=== PATIENT | female | born 1955 ===

== ENCOUNTER 2021-07-24 20:54 | Emergency (ER) | payer OTHER ==
--- NOTE | 2021-07-25 01:29 | ER ---
Nurse's Notes [facility] Name: Maria Guadalupe Moreno Age: 65 yrs Sex: Female : 1955 Arrival Date: 07/24/2021 Time: 20:56 Bed 28 Private MD: Diagnosis: Left Distal Fibular Fracture Presentation: 07/24 21:17 Chief complaint: Patient states: the patient states she missed the last step on her st1 sons porch and fell landing on her left ankle. Coronavirus screen: Vaccine status: Patient reports being unvaccinated. Ebola Screen: No symptoms or risks identified at this time. Initial Sepsis Screen: Does the patient meet any 2 criteria? No. Patient's initial sepsis screen is negative. Does the patient have a suspected source of infection? No. Patient's initial sepsis screen is negative. Risk Assessment: Do you want to hurt yourself or someone else? Patient reports no desire to harm self or others. Onset of symptoms was July 24, 2021. 21:17 Method Of Arrival: Wheelchair st1 21:17 Acuity: STEVE 4 st1 Triage Assessment: 21:18 General: Appears in no apparent distress. uncomfortable, obese, well groomed, Behavior st1 is calm, cooperative. Pain: Complains of pain in Left ankle Pain radiates to Radiated up left leg Pain at worst was 8 out of 10 on a pain scale. level that patient reports is acceptable is 2 out of 10 on a pain scale. Quality of pain is described as sharp. Musculoskeletal: Reports weakness in left ankle pain in Left ankle. Historical: - Allergies: 21:18 No Known Allergies; st1 - PMHx: 21:18 Fibromyalgia; Depressive disorder; Arthritis; st1 - Immunization history:: Adult Immunizations not immunized. - Social history:: Smoking status: Patient denies any tobacco usage or history of. Patient/guardian denies using alcohol, street drugs, tobacco products. Screenin:22 Abuse screen: Denies threats or abuse. Nutritional screening: No deficits noted. st1 Tuberculosis screening: No symptoms or risk factors identified. Fall Risk Fall in past 12 months (25 points). No secondary diagnosis (0 pts). No IV (0 pts). Ambulatory Aid- Crutches/Cane/Walker (15 pts). Gait- Normal/Bed Rest/Wheelchair (0 pts) Mental Status- Oriented to own ability (0 pts). Total Sung Fall Scale indicates Low Risk Score (25-44 pts). Assessment: 23:53 Reassessment: All rdiological exams completed. waiting for results.. sv1 07/25 02:08 Reassessment: All imaging studies complete. A splint was applied to the left lower sv1 extremity. Dc'd via wheelchair to private auto.. Vital Signs: 07/24 21:21 BP 117 / 74; Pulse 75; Resp 16; Temp 98.4; Pulse Ox 96% on R/A; Weight 117.93 kg; st1 Height 5 ft. 8 in. (172.72 cm); Pain 8/10; 21:36 BP 126 / 70 LA Supine (auto/reg); Pulse 70 MON; Resp 16 S; Temp 98.3(O); Pulse Ox 98% sv1 on R/A; Pain 8/10; 23:25 BP 119 / 96 RA Supine (auto/reg); Pulse 74 MON; Resp 16 S; Pulse Ox 98% on R/A; sv1 07/25 02:03 BP 111 / 68 LA Supine (auto/reg); Pulse 77 MON; Resp 20 S; Temp 95.0; Pulse Ox 100% on sv1 R/A; Pain 2/10; 07/24 21:21 Body Mass Index 39.53 (117.93 kg, 172.72 cm) st ED Course: 07/24 20:56 Patient arrived in ED. jj6 21:18 Triage completed. st1 21:21 Arm band placed on left wrist. st1 21:22 Patient has correct armband on for positive identification. Bed in low position. Call st1 light in reach. Side rails up X 1. 21:27 Wil Mancini, MONA is Primary Nurse. sv1 21:30 Heladio Anderson PA is PHCP. [facility] 21:30 Johnny Mason MD is Attending Physician. jmm 22:43 Ankle Left 3 View XRAY In Process Unspecified. EDMS 22:43 Foot Left 3 View XRAY In Process Unspecified. EDMS 22:57 CT Head C Spine In Process Unspecified. EDMS 07/25 01:03 Orthoglass splint: Posterior short lleg splint applied on left leg. stirrup splint oe applied on left leg. 01:27 Raman Lock MD is Referral Physician. [facility] 02:03 No provider procedures requiring assistance completed. Patient did not have IV access sv1 during this emergency room visit. Administered Medications: No medications were administered Outcome: :28 Discharge ordered by . nicholas 02:03 Discharged to home via wheelchair. sv1 02:03 Condition: improved 02:08 Discharge instructions given to patient. sv1 02:11 Patient left the ED. sv1 Signatures: Dispatcher [employer] EDMS Heladio Anderson PA PA Xavi Garcia Jennifer jj6 Wil Mancini RN RN sv1 Anastasiya Valentine, RN RN st1
--- NOTE | 2021-07-25 01:29 | EDPHYS ---
Physician Documentation [facility] Name: Maria Guadalupe Moreno Age: 65 yrs Sex: Female : 1955 Arrival Date: 07/24/2021 Time: 20:56 Bed 28 Private MD: ED Physician Johnny Mason HPI: 07/24 21:52 This 65 yrs old Unknown Female presents to ER via Wheelchair with complaints of Ankle jmm Injury, Ankle Swelling, Foot Injury, Foot Pain. 21:52 The patient presents with an injury, pain. Onset: The symptoms/episode began/occurred jmm acutely, just prior to arrival. Associated signs and symptoms: Pertinent negatives: fever. Modifying factors: The symptoms are alleviated by nothing, the symptoms are aggravated by weight bearing, movement. This is a 65-year-old female with history of fibromyalgia that presents emerged department with complaints of left ankle pain beginning after miss stepping on her last step. Patient states she did hit her head during the fall. Denies other known injury.. Historical: - Allergies: 21:18 No Known Allergies; st1 - PMHx: 21:18 Fibromyalgia; Depressive disorder; Arthritis; st1 - Immunization history:: Adult Immunizations not immunized. - Social history:: Smoking status: Patient denies any tobacco usage or history of. Patient/guardian denies using alcohol, street drugs, tobacco products. ROS: 21:52 Constitutional: Negative for fever, chills, and weight loss, Cardiovascular: Negative jmm for chest pain, palpitations, and edema, Respiratory: Negative for shortness of breath, cough, wheezing, and pleuritic chest pain. 21:52 MS/extremity: Positive for injury or acute deformity. 21:52 Neuro: Positive for headache. 21:52 All other systems are negative. Exam: 21:52 Constitutional: This is a well developed, well nourished patient who is awake, alert, jmm and in no acute distress. Head/Face: atraumatic. Eyes: EOMI, no conjunctival erythema appreciated ENT: Moist Mucus Membranes Neck: Trachea midline, Supple Chest/axilla: Normal chest wall appearance and motion. Cardiovascular: Regular rate and rhythm. No edema appreciated Respiratory: Normal respirations, no respiratory distress appreciated Abdomen/GI: Non distended, soft Back: Normal ROM Skin: General appearance color normal 21:52 Musculoskeletal/extremity: Swelling noted to the left ankle, compartments are soft, full dorsalis pedis pulse, pain elicited on palpation of the left lateral ankle, neurovascular intact. 21:52 Skin: Appearance: Color: normal in color. 21:52 Neuro: Orientation: is normal, Mentation: is normal, Memory: is normal. 21:52 Psych: Behavior/mood is pleasant, cooperative. Vital Signs: 21:21 BP 117 / 74; Pulse 75; Resp 16; Temp 98.4; Pulse Ox 96% on R/A; Weight 117.93 kg; st1 Height 5 ft. 8 in. (172.72 cm); Pain 8/10; 21:36 BP 126 / 70 LA Supine (auto/reg); Pulse 70 MON; Resp 16 S; Temp 98.3(O); Pulse Ox 98% sv1 on R/A; Pain 8/10; 23:25 BP 119 / 96 RA Supine (auto/reg); Pulse 74 MON; Resp 16 S; Pulse Ox 98% on R/A; sv1 07/25 02:03 BP 111 / 68 LA Supine (auto/reg); Pulse 77 MON; Resp 20 S; Temp 95.0; Pulse Ox 100% on sv1 R/A; Pain 2/10; 07/24 21:21 Body Mass Index 39.53 (117.93 kg, 172.72 cm) st1 MDM: 07/24 21:52 Patient medically screened. [facility] 07/25 01:25 Data reviewed: vital signs, nurses notes. Counseling: I had a detailed discussion with [facility] the patient and/or guardian regarding: the historical points, exam findings, and any diagnostic results supporting the discharge/admit diagnosis, lab results, radiology results, the need for outpatient follow up, to return to the emergency department if symptoms worsen or persist or if there are any questions or concerns that arise at home. 07/24 22:04 Order name: Ankle Left 3 View XRAY [facility] 07/24 22:04 Order name: Foot Left 3 View XRAY [facility] 07/24 22:05 Order name: CT Head C Spine [facility] 07/25 00:26 Order name: Posterior Orthoglass Ankle Splint; Complete Time: 01:22 [facility] 07/25 02:11 Order name: Crutch Training; Complete Time: 02:11 sv1 Administered Medications: No medications were administered Disposition: 02:22 Co-signature as Attending Physician, Johnyn Mason MD I agree with the assessment and rn plan of care. Attestation: The patient's history, exam findings, diagnostics, and a summary of any interventions or procedures was reviewed in detail with Heladio JONES. Disposition Summary: 07/25/21 01:28 Discharge Ordered Location: Home [facility] Condition: Stable [facility] Diagnosis - Left Distal Fibular Fracture [facility] Followup: [facility] - With: Raman Lock MD - When: 2 - 3 days - Reason: Recheck today's complaints, Continuance of care, Re-evaluation by your physician Discharge Instructions: - Discharge Summary Sheet [facility] - Ankle Fracture [facility] Forms: - Medication Reconciliation Form [facility] - Thank You Letter [facility] - Antibiotic Education [facility] - Prescription Opioid Use [facility] - Work release form mw2 Signatures: Dispatcher [employer] EDHeladio Lucas PA PA jmm Nieto, Roman, MD MD rn Villicano, Steven, RN RN sv1 Anastasiya Valentine, RN RN st1
[2021-07-25 02:55] VITALS: BP 111/68; TEMP 95; O2SAT 100
--- NOTE | 2021-07-25 20:52 | RAD REPORT ---
EXAM DESCRIPTION: Head C Spine Mpr Wo Con CLINICAL HISTORY: 65 years Female fall, head injury COMPARISON: None TECHNIQUE: Images were obtained in axial, sagittal, and coronal planes. One or more of the following dose optimizing techniques was utilized for this exam: Automated exposur e control, adjustment of the mA and/or kV according to patient size, and/or use of iterative reconstr uction technique. FINDINGS: CT brain: Ventricular system appears normal. No abnormal areas of increased attenuation se en. No extra-axial fluid collections noted. No evidence for skull fracture. Symmetric aeration mastoi d air cells bilaterally. Unremarkable paranasal sinuses. CT cervical spine: Height of the vertebral bodies is intact. Satisfactory alignment articular facets. Intact odontoid and predental space. Prevertebral soft tissues appear normal. Mild anterior osteophy te formation C5-6. 2 mm anterior subluxation C4 with relationship to C5. Marginal spur formation with neural foraminal narrowing bilaterally C5-6 and C6-7. Intact occipital condyles. 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 No focal disc protrusion. No abnorma lities lung apices bilaterally. IMPRESSION: 1. No acute intracranial abnormality. No evidence for hemorrhage, mass lesion, or larg e acute infarction. 2. No acute fracture or subluxation cervical spine. Mild multilevel osteoarthritic change. Electronically signed by: Kenisha Mariscal MD 07/24/2021 11:24 PM BOBTAIL DRIVER Due to temporary technical issues with the PACS/Fluency reporting system, reports are being signed by the in house radiologists without review as a courtesy to insure prompt reporting. The interpreting radiologist is fully responsible for the content of the report.
--- NOTE | 2021-07-25 20:53 | RAD REPORT ---
EXAM DESCRIPTION: Ankle Left 3 View (accession [id number]), Foot Left 3 View (accession [id number]) RadLex: XR ANKLE 3 OR MORE VIEWS, XR FOOT 3 OR MORE VIEWS CLINICAL HISTORY: Ankle pain. COMPARISON: None. TECHNIQUE: Three views of the left foot and ankle were obtained: AP, oblique, and lateral radiograph s. FINDINGS: There is an acute minimally displaced oblique fracture in the distal fibula. No ankle mort ise widening. The talar dome appears intact. Lisfranc joint alignment is maintained. Small chronic pl hans fascial and Achilles enthesophytes. Moderate hallux valgus. IMPRESSION: 1. Acute minimally displaced oblique fracture in the distal fibula. 2. No acute osseous abnormality identified in the foot. Electronically signed by: Olga Graham MD 07/24/2021 11:03 PM MEDICAL FRONT DESK COORDINATOR Due to temporary technical issues with the PACS/Fluency reporting system, reports are being signed by the in house radiologists without review as a courtesy to insure prompt reporting. The interpreting radiologist is fully responsible for the content of the report.
--- NOTE | 2021-07-25 20:55 | RAD REPORT ---
EXAM DESCRIPTION: Ankle Left 3 View (accession [id number]), Foot Left 3 View (accession [id number]) RadLex: XR ANKLE 3 OR MORE VIEWS, XR FOOT 3 OR MORE VIEWS CLINICAL HISTORY: Ankle pain. COMPARISON: None. TECHNIQUE: Three views of the left foot and ankle were obtained: AP, oblique, and lateral radiograph s. FINDINGS: There is an acute minimally displaced oblique fracture in the distal fibula. No ankle mort ise widening. The talar dome appears intact. Lisfranc joint alignment is maintained. Small chronic pl hans fascial and Achilles enthesophytes. Moderate hallux valgus. IMPRESSION: 1. Acute minimally displaced oblique fracture in the distal fibula. 2. No acute osseous abnormality identified in the foot. Electronically signed by: Olga Graham MD 07/24/2021 11:03 PM BUSINESS MANAGEMENT SPECIALIST Due to temporary technical issues with the PACS/Fluency reporting system, reports are being signed by the in house radiologists without review as a courtesy to insure prompt reporting. The interpreting radiologist is fully responsible for the content of the report.
== END 2021-07-25 02:11 | disposition home or self-care (01) ==
LOC: ER 20:54
PROC: 2W3RX1Z Immobilization of Left Lower Leg using Splint (ICD-10-PCS; principal; 2021-07-25)
DX: S82.832A Other fracture of upper and lower end of left fibula, initial encounter for closed fracture (principal); R51.9 Headache, unspecified; W19.XXXA Unspecified fall, initial encounter
CPT/HCPCS: 70450; 72125; 99283